=== PATIENT | female | born 1995 | race Caucasian/White ===

== ENCOUNTER 2018-07-22 06:45 | Inpatient (IN) | payer MEDICAID ==
[2018-07-22] MEDS ORDERED: Lactated Ringers 1,000 ML IV SCH (08:00)
[2018-07-22] MEDS ORDERED: Penicillin G Potassium 5 MILLUNITS in Sodium Chloride 0.9% 50 ML IV ONE (08:00)
[2018-07-22] MEDS ORDERED: Ondansetron 4 MG/2 ML SDV IV PRN (08:34)
[2018-07-22] MEDS ORDERED: Acetaminophen 325 MG Tab PO PRN (08:34)
[2018-07-22] MEDS ORDERED: Sodium Chloride 0.9% 10 ML Syringe FLUSH PRN (08:34)
[2018-07-22] MEDS ORDERED: Calcium Carbonate 500 MG Tab.Chew PO PRN (08:34)
--- NOTE | 2018-07-22 09:13 | PCM.LDHP ---
<Lilo Castellanosie - Last Filed: 07/22/18 09:07> L&D History of Present Illness - General Date of Service: 07/22/18 (Labor, SROM ) Admit Problem/Dx: Patient Status Order with Admit Dx/Problem 07/22/18 08:35 Patient Status [ADT] Routine Admission Diagnosis/Problem Admission Diagnosis/Problem Term Source of Information: Patient History Limitations: Reports: No Limitations - History of Present Illness Introduction:: 23 yo comes to L & D this morning with SROM at home of clear fluid around 0630. She was willi every 2-4 minutes at that time but they were only lasting 40 seconds or so. She now is willi every 1.5-2 minutes lasting 60 seconds and progressing nicely. She is up walking and getting into the tub now. She is unsure if she desires pain medication. Timing/Duration: Reports: seconds: (60), minutes: (2), gradual onset Location, : Reports: Abdomen, Lower back Quality: Reports: Sharp Severity: Moderate Improves with: Reports: Movement Worsens with: Reports: None Associated Symptoms: Reports: vaginal fluid (Clear amniotic), mild amount. Denies: vaginal bleeding, vaginal discharge - Related Data Allergies/Adverse Reactions: Allergies Allergy/AdvReac Type Severity Reaction Status Date / Time No Known Allergies Allergy Verified 03/03/18 22:07 Home Medications: Home Meds Docosahexanoic Acid [ Dha] 03/03/18 [History] Omeprazole 03/03/18 [History] Ondansetron [Zofran ODT] 03/03/18 [History] Past Medical History DINKEY BRAKEMAN History: Reports: : 2 Para: 0 LMP (Approximate): - Past Surgical History HEENT Surgical History: Reports: Myringotomy w Tube(s) H&P Review of Systems - Review of Systems: Review Of Systems: See Below General: Reports: No Symptoms HEENT: Reports: No Symptoms Pulmonary: Reports: No Symptoms Cardiovascular: Reports: No Symptoms Gastrointestinal: Reports: No Symptoms Genitourinary: Reports: No Symptoms Musculoskeletal: Reports: No Symptoms Skin: Reports: No Symptoms Psychiatric: Reports: No Symptoms Neurological: Reports: No Symptoms Hematologic/Lymphatic: Reports: No Symptoms Immunologic: Reports: No Symptoms L&D Exam - Exam Exam: See Below - Vital Signs Vital Signs: Last Vital Signs Temp 35.9 C 07/22/18 06:59 Pulse 97 07/22/18 06:59 Resp 18 07/22/18 06:59 BP 120/77 07/22/18 06:59 Pulse Ox 97 07/22/18 06:59 Weight: 278 lb - OB Specific Contraction Duration (sec): 60 Contraction Frequency (min): 2 Contraction Intensity: Moderate Movement: Active Heart Tones: Present Heart Tones per Min: 130 Heart Rate (FHR) Variability: Moderate (6-25 bmp) Presentation: Vertex Estimated Weight: 8.5# - Exam General: Alert, Oriented HEENT: PERRLA, Conjunctiva Clear, EOMI, Hearing Intact, Mucosa Moist & [place], Nares Patent, Normal Nasal Septum Neck: Supple, Trachea Midline Lungs: Clear to Auscultation, Normal Respiratory Effort Cardiovascular: Regular Rate, Regular Rhythm GI/Abdominal Exam: Normal Bowel Sounds, Soft, Non-Tender, No Organomegaly, No Distention, No Abnormal Bruit, No Mass, Pelvis Stable Rectal Exam: Normal Exam, Normal Rectal Tone Genitourinary: Normal external exam, Cervical dilitation, Enlarged uterus Back Exam: Normal Inspection, Full Range of Motion Extremities: Normal Inspection, Normal Range of Motion, Non-Tender, No Pedal Edema, Normal Capillary Refill Skin: Warm, Dry, Intact Neurological: Cranial Nerves Intact, Reflexes Equal Bilateral Psychiatric: Alert, Normal Affect, Normal Mood - Patient Data Lab Results Last 24 hrs: Laboratory Results - last 24 hr 07/22/18 07/22/18 07/22/18 Range/Units 06:51 06:52 06:52 WBC (4.5-11.0) K/uL RBC (3.30-5.50) M/uL Hgb (12.0-15.0) g/dL Hct (36.0-48.0) % MCV (80-98) fL MCH (27-31) pg MCHC (32-36) % Plt Count (150-400) K/uL Neut % (Auto) (36-66) % Lymph % (Auto) (24-44) % [place] % (Auto) (2-6) % Eos % (Auto) (2-4) % Baso % (Auto) (0-1) % Urine Color Yellow Urine Appearance Slightly cloudy Urine pH 7.0 (4.5-8.0) Ur Specific [place] 1.010 (1.008-1.030) Urine Protein Trace (NEGATIVE) mg/dL Urine Glucose (UA) Normal (NEGATIVE) mg/dL Urine Ketones Negative (NEGATIVE) mg/dL Urine Occult Blood Trace (NEGATIVE) Urine Nitrite Negative (NEGATIVE) Urine Bilirubin Negative (NEGATIVE) Urine Urobilinogen Normal (NORMAL) mg/dL Ur Leukocyte Esterase Large (NEGATIVE) Urine RBC 0-5 (0-5) Urine WBC 5-10 H (0-5) Ur Epithelial Cells Few Amorphous Sediment Not seen Urine Bacteria Not seen Urine Mucus Not seen Urinalysis Comment Membrane Rupture Positive H (NEGATIVE) Urine Opiates Screen Negative (NEGATIVE) Ur Oxycodone Screen Negative (NEGATIVE) Urine Methadone Screen Negative (NEGATIVE) Ur Propoxyphene Screen Negative (NEGATIVE) Ur Barbiturates Screen Negative (NEGATIVE) Ur Tricyclics Screen Negative (NEGATIVE) Ur Phencyclidine Scrn Negative (NEGATIVE) Ur Amphetamine Screen Negative (NEGATIVE) U Methamphetamines Scrn Negative (NEGATIVE) Urine MDMA Screen Negative (NEGATIVE) U Benzodiazepines Scrn Negative (NEGATIVE) U Cocaine Metab Screen Negative (NEGATIVE) U Marijuana (THC) Screen Negative (NEGATIVE) 07/22/18 Range/Units 08:34 WBC 19.2 H (4.5-11.0) K/uL RBC 4.18 (3.30-5.50) M/uL Hgb 12.1 (12.0-15.0) g/dL Hct 35.5 L (36.0-48.0) % MCV 85 (80-98) fL MCH 29 (27-31) pg MCHC 34 (32-36) % Plt Count 309 (150-400) K/uL Neut % (Auto) 85 H (36-66) % Lymph % (Auto) 10 L (24-44) % [place] % (Auto) 5 (2-6) % Eos % (Auto) 0 L (2-4) % Baso % (Auto) 0 (0-1) % Urine Color Urine Appearance Urine pH (4.5-8.0) Ur Specific [place] (1.008-1.030) Urine Protein (NEGATIVE) mg/dL Urine Glucose (UA) (NEGATIVE) mg/dL Urine Ketones (NEGATIVE) mg/dL Urine Occult Blood (NEGATIVE) Urine Nitrite (NEGATIVE) Urine Bilirubin (NEGATIVE) Urine Urobilinogen (NORMAL) mg/dL Ur Leukocyte Esterase (NEGATIVE) Urine RBC (0-5) Urine WBC (0-5) Ur Epithelial Cells Amorphous Sediment Urine Bacteria Urine Mucus Urinalysis Comment Membrane Rupture (NEGATIVE) Urine Opiates Screen (NEGATIVE) Ur Oxycodone Screen (NEGATIVE) Urine Methadone Screen (NEGATIVE) Ur Propoxyphene Screen (NEGATIVE) Ur Barbiturates Screen (NEGATIVE) Ur Tricyclics Screen (NEGATIVE) Ur Phencyclidine Scrn (NEGATIVE) Ur Amphetamine Screen (NEGATIVE) U Methamphetamines Scrn (NEGATIVE) Urine MDMA Screen (NEGATIVE) U Benzodiazepines Scrn (NEGATIVE) U Cocaine Metab Screen (NEGATIVE) U Marijuana (THC) Screen (NEGATIVE) Result Diagrams: 07/22/18 08:34 - Problem List (1) Active labor at term SNOMED Code(s): 33884246 ICD Code: [id number] - Status: Acute Current Visit: Yes (2) GBS (group B Streptococcus carrier), +RV culture, currently SNOMED Code(s): 6016207556741, [id number], 9387444744236 ICD Code: O99.820 - STREPTOCOCCUS 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 COMPLICATING Status: Acute Current Visit: Yes (3) Spontaneous rupture of membranes SNOMED Code(s): 242643329 ICD Code: [id number] - Status: Acute Current Visit: Yes Problem List Initiated/Reviewed/Updated: Yes Orders Last 24hrs: Active Orders 24 hr Category Date Time Status Patient Status [ADT] Routine ADT 07/22/18 08:35 Active Communication Order [RC] ASDIRECTED Care 07/22/18 08:35 Active Heart Tones [RC] PER UNIT ROUTINE Care 07/22/18 08:35 Active Non Stress Test [RC] Click to Edit Care 07/22/18 08:35 Active Notify Provider Vital Signs [RC] PRN Care 07/22/18 08:38 Active Notify Provider [RC] PRN Care 07/22/18 08:35 Active Up ad Linda [RC] ASDIRECTED Care 07/22/18 08:34 Active Vital Signs [RC] PER UNIT ROUTINE Care 07/22/18 08:35 Active Acetaminophen [Tylenol] Med 07/22/18 08:34 Active 650 mg PO Q4H PRN Calcium Carbonate [Tums] Med 07/22/18 08:34 Active 1,000 mg PO Q2H PRN Lactated Ringers [Ringers, Lactated] 1,000 ml Med 07/22/18 08:00 Active IV ASDIRECTED Ondansetron [Zofran] Med 07/22/18 08:34 Active 4 mg IV Q4H PRN Penicillin G Potassium [Pfizerpen] 2.5 millunits Med 07/22/18 12:00 Active Sodium Chloride 0.9% [Normal Saline] 50 ml IV Q4H Sodium Chloride 0.9% [Saline Flush] Med 07/22/18 08:34 Active 10 ml FLUSH ASDIRECTED PRN fentaNYL [Sublimaze] Med 07/22/18 08:34 Active 100 mcg IVPUSH Q1H PRN Saline Lock Insert [OM.PC] Routine Oth 07/22/18 08:35 Ordered Resuscitation Status Routine Resus Stat 07/22/18 08:34 Ordered Medication Orders Acetaminophen (Tylenol) 650 mg PO Q4H PRN PRN Reason: Pain (Mild 1-3) and fever Calcium Carbonate/Glycine (Tums) 1,000 mg PO Q2H PRN PRN Reason: Indigestion Fentanyl (Sublimaze) 100 mcg IVPUSH Q1H PRN PRN Reason: Pain (moderate 4-6) Penicillin G Potassium 2.5 (millunits/ Sodium Chloride) 50 mls @ 100 mls/hr IV Q4H [facility] Lactated Ringer's (Ringers, Lactated) 1,000 mls @ 125 mls/hr IV ASDIRECTED [facility] Last Admin: 07/22/18 08:16 Dose: 125 mls/hr Ondansetron HCl (Zofran) 4 mg IV Q4H PRN PRN Reason: Nausea/Vomiting Sodium Chloride (Saline Flush) 10 ml FLUSH ASDIRECTED PRN PRN Reason: Keep Vein Open Assessment/Plan Comment:: 07/22/18 Assessment: 23 yo at 39 1/7 weeks with SROM of clear fluid at home, active labor SVE 4.5/100/-1 GBS positive B+ blood type Rubella immune Hep B & C/HIV/RPR all neg Plan: Anticipate Getting into the tub now Antibiotics for GBS Epidural or pain medication as she desires <Gay Valdez A - Last Filed: 07/22/18 12:48> L&D History of Present Illness - General Admit Problem/Dx: Patient Status Order with Admit Dx/Problem 07/22/18 08:35 Patient Status [ADT] Routine Admission Diagnosis/Problem Admission Diagnosis/Problem Term L&D Exam - Vital Signs Vital Signs: Last Vital Signs Temp 96.6 F 07/22/18 06:59 Pulse 97 07/22/18 06:59 Resp 18 07/22/18 06:59 BP 120/77 07/22/18 06:59 Pulse Ox 97 07/22/18 06:59 - Patient Data Lab Results Last 24 hrs: Laboratory Results - last 24 hr 07/22/18 07/22/18 07/22/18 Range/Units 06:51 06:52 06:52 WBC (4.5-11.0) K/uL RBC (3.30-5.50) M/uL Hgb (12.0-15.0) g/dL Hct (36.0-48.0) % MCV (80-98) fL MCH (27-31) pg MCHC (32-36) % Plt Count (150-400) K/uL Neut % (Auto) (36-66) % Lymph % (Auto) (24-44) % [place] % (Auto) (2-6) % Eos % (Auto) (2-4) % Baso % (Auto) (0-1) % Urine Color Yellow Urine Appearance Slightly cloudy Urine pH 7.0 (4.5-8.0) Ur Specific [place] 1.010 (1.008-1.030) Urine Protein Trace (NEGATIVE) mg/dL Urine Glucose (UA) Normal (NEGATIVE) mg/dL Urine Ketones Negative (NEGATIVE) mg/dL Urine Occult Blood Trace (NEGATIVE) Urine Nitrite Negative (NEGATIVE) Urine Bilirubin Negative (NEGATIVE) Urine Urobilinogen Normal (NORMAL) mg/dL Ur Leukocyte Esterase Large (NEGATIVE) Urine RBC 75-100 H (0-5) Urine WBC 10-20 H (0-5) Ur Epithelial Cells Moderate Amorphous Sediment Not seen Urine Bacteria Not seen Urine Mucus Moderate Urinalysis Comment Membrane Rupture Positive H (NEGATIVE) Urine Opiates Screen Negative (NEGATIVE) Ur Oxycodone Screen Negative (NEGATIVE) Urine Methadone Screen Negative (NEGATIVE) Ur Propoxyphene Screen Negative (NEGATIVE) Ur Barbiturates Screen Negative (NEGATIVE) Ur Tricyclics Screen Negative (NEGATIVE) Ur Phencyclidine Scrn Negative (NEGATIVE) Ur Amphetamine Screen Negative (NEGATIVE) U Methamphetamines Scrn Negative (NEGATIVE) Urine MDMA Screen Negative (NEGATIVE) U Benzodiazepines Scrn Negative (NEGATIVE) U Cocaine Metab Screen Negative (NEGATIVE) U Marijuana (THC) Screen Negative (NEGATIVE) 07/22/18 Range/Units 08:34 WBC 19.2 H (4.5-11.0) K/uL RBC 4.18 (3.30-5.50) M/uL Hgb 12.1 (12.0-15.0) g/dL Hct 35.5 L (36.0-48.0) % MCV 85 (80-98) fL MCH 29 (27-31) pg MCHC 34 (32-36) % Plt Count 309 (150-400) K/uL Neut % (Auto) 85 H (36-66) % Lymph % (Auto) 10 L (24-44) % [place] % (Auto) 5 (2-6) % Eos % (Auto) 0 L (2-4) % Baso % (Auto) 0 (0-1) % Urine Color Urine Appearance Urine pH (4.5-8.0) Ur Specific [place] (1.008-1.030) Urine Protein (NEGATIVE) mg/dL Urine Glucose (UA) (NEGATIVE) mg/dL Urine Ketones (NEGATIVE) mg/dL Urine Occult Blood (NEGATIVE) Urine Nitrite (NEGATIVE) Urine Bilirubin (NEGATIVE) Urine Urobilinogen (NORMAL) mg/dL Ur Leukocyte Esterase (NEGATIVE) Urine RBC (0-5) Urine WBC (0-5) Ur Epithelial Cells Amorphous Sediment Urine Bacteria Urine Mucus Urinalysis Comment Membrane Rupture (NEGATIVE) Urine Opiates Screen (NEGATIVE) Ur Oxycodone Screen (NEGATIVE) Urine Methadone Screen (NEGATIVE) Ur Propoxyphene Screen (NEGATIVE) Ur Barbiturates Screen (NEGATIVE) Ur Tricyclics Screen (NEGATIVE) Ur Phencyclidine Scrn (NEGATIVE) Ur Amphetamine Screen (NEGATIVE) U Methamphetamines Scrn (NEGATIVE) Urine MDMA Screen (NEGATIVE) U Benzodiazepines Scrn (NEGATIVE) U Cocaine Metab Screen (NEGATIVE) U Marijuana (THC) Screen (NEGATIVE) Result Diagrams: 07/22/18 08:34 Orders Last 24hrs: Active Orders 24 hr Category Date Time Status Patient Status [ADT] Routine ADT 07/22/18 08:35 Active Communication Order [RC] ASDIRECTED Care 07/22/18 08:35 Active Notify Provider Vital Signs [RC] PRN Care 07/22/18 08:38 Active Notify Provider [RC] PRN Care 07/22/18 08:35 Active Up ad Linda [RC] ASDIRECTED Care 07/22/18 08:34 Active Vital Signs [RC] PER UNIT ROUTINE Care 07/22/18 08:35 Active Acetaminophen [Tylenol] Med 07/22/18 08:34 Active 650 mg PO Q4H PRN Calcium Carbonate [Tums] Med 07/22/18 08:34 Active 1,000 mg PO Q2H PRN Lactated Ringers [Ringers, Lactated] 1,000 ml Med 07/22/18 08:00 Active IV ASDIRECTED Ondansetron [Zofran] Med 07/22/18 08:34 Active 4 mg IV Q4H PRN Penicillin G Potassium [Pfizerpen] 2.5 millunits Med 07/22/18 12:00 Active Sodium Chloride 0.9% [Normal Saline] 50 ml IV Q4H Sodium Chloride 0.9% [Saline Flush] Med 07/22/18 08:34 Active 10 ml FLUSH ASDIRECTED PRN fentaNYL [Sublimaze] Med 07/22/18 08:34 Active 100 mcg IVPUSH Q1H PRN Saline Lock Insert [OM.PC] Routine Oth 07/22/18 08:35 Ordered Resuscitation Status Routine Resus Stat 07/22/18 08:34 Ordered Medication Orders Acetaminophen (Tylenol) 650 mg PO Q4H PRN PRN Reason: Pain (Mild 1-3) and fever Calcium Carbonate/Glycine (Tums) 1,000 mg PO Q2H PRN PRN Reason: Indigestion Fentanyl (Sublimaze) 100 mcg IVPUSH Q1H PRN PRN Reason: Pain (moderate 4-6) Last Admin: 07/22/18 12:19 Dose: 100 mcg Admin: 07/22/18 10:54 Dose: 100 mcg Admin: 07/22/18 09:50 Dose: 100 mcg Penicillin G Potassium 2.5 (millunits/ Sodium Chloride) 50 mls @ 100 mls/hr IV Q4H [facility] Lactated Ringer's (Ringers, Lactated) 1,000 mls @ 125 mls/hr IV ASDIRECTED [facility] Last Admin: 07/22/18 08:16 Dose: 125 mls/hr Ondansetron HCl (Zofran) 4 mg IV Q4H PRN PRN Reason: Nausea/Vomiting Sodium Chloride (Saline Flush) 10 ml FLUSH ASDIRECTED PRN PRN Reason: Keep Vein Open Assessment/Plan Comment:: I personally performed or re-performed the physical examination and medical decision making. I have verified all student documentation or findings, including history, physical exam and/or medical decision making.Gay Valdez APRN, CNM, CFNP
[2018-07-22] MEDS ORDERED: Oxytocin 10 Units/1 ML SDV ONE (09:48)
[2018-07-22] MEDS ORDERED: Lidocaine 1% 50 ML MDV ONE (09:48)
[2018-07-22] MEDS: fentaNYL 100 MCG/2 ML SDV IVPUSH PRN ×3 (09:50→12:19)
[2018-07-22] MEDS ORDERED: Methylergonovine 0.2 MG/1 ML Amp ONE (12:16)
[2018-07-22] MEDS ORDERED: Methylergonovine 0.2 MG/1 ML Amp IM ONE (12:27)
[2018-07-22] MEDS ORDERED: Lidocaine 1% 50 ML MDV INJECT ONE (12:33)
[2018-07-22] MEDS ORDERED: Witch Hazel Medicated Pads 100/Jar TOP PRN (12:46)
[2018-07-22] MEDS ORDERED: Benzocaine 20% Top Spray 56 GM Bottle TOP PRN (12:46)
[2018-07-22] MEDS ORDERED: Lanolin 100% Cream 40 GM Tube TOP PRN (12:46)
[2018-07-22] MEDS ORDERED: Ibuprofen 200 MG Tab, 24 Tab Bulk Bottle PO PRN (12:46)
[2018-07-22] MEDS ORDERED: Docusate Sodium 100 MG Cap PO PRN (12:46)
[2018-07-22] MEDS ORDERED: Acetaminophen 325 MG Tab, 50 Tab Bulk Bottle PO PRN (12:46)
--- NOTE | 2018-07-22 13:00 | PCM.DEL ---
<Anjelica Castellanos - Last Filed: 07/22/18 12:50> L & D Note - General Info Date of Service: 07/22/18 ([facility]) - Delivery Note Labor: Spontaneous Delivery Outcome: Livebirth Infant Delivery Method: Spontaneous Vaginal Delivery-Single Infant Delivery Mode: Spontaneous Presentation: Vertex Nuchal Cord: None Anesthesia Type: None Anesthetic: Lidocaine (Xylocaine) 1% Plain Local Anesthetic Volume: 5cc Amniotic Fluid Description: Clear Episiotomy Type: None Laceration: Labial (right), Periurethral (right) Suture size: 3-0 Placenta: Intact, Spontaneous Cord: 3 Vessels Estimated Blood Loss: 400 Resuscitation Needed: No [place]: Bulb Syringe, Stimulated, Warmer Used Score 1 min: 8 Score 5 min: 9 Second Stage Interventions: Reports: Second Nurse Assessed Progress of Descent, Second Nurse Reviewed Contraction Pattern, Second Nurse Reviewed Heart Tones, Pushing Effectively, Pushing, Feet in Foot Rests, Pushing, Pulls Own Legs Back Delivery Comments (Free Text/Narrative):: 07/22/18 23 yo delivered a viable female infant at 39 1/7 weeks. She had SROM at home and then had spontaneous onset of labor. She recieved fentanyl for pain relief and used the tub. She pushed effectively and delivered at 1208. Delayed cord clamping done for roughly 30 seconds but then the cord was clamped and cut and baby was brought to warmer for poor respiratory effort. She was stimulated and given blow by oxygen and stimulated, responded very well and ended up with Apgars 8, 9. She has no cervical or vaginal lacerations, she does have a right labial and periurethral tear. A straight catheter was inserted to urethra for ease of repair.The area was numbed with 1% lidocaine without epi and repaired with 3-0 Vicryl without compilations. Placenta was delivered spontaneously, intact, with a 3 vessel cord. She did have a boggy uterus regardless of IV Pitocin so she was given Methergine IM as well. FF and bleeding light now. EBL 400 ml Weight 8 lb 3 oz and 20 in long. Baby skin to skin and now. Labor Stages: 1: 3812-6231 2: 5250-6279 3: 6401-0524 - General Info Date of Service: 07/22/18 () Functional Status: Reports: Pain Controlled - Review of Systems General: Reports: No Symptoms HEENT: Reports: No Symptoms Pulmonary: Reports: No Symptoms Cardiovascular: Reports: No Symptoms Gastrointestinal: Reports: No Symptoms Genitourinary: Reports: No Symptoms Musculoskeletal: Reports: No Symptoms Skin: Reports: No Symptoms Neurological: Reports: No Symptoms Psychiatric: Reports: No Symptoms - Patient Data Vitals - Most Recent: Last Vital Signs Temp 35.9 C 07/22/18 06:59 Pulse 97 07/22/18 06:59 Resp 18 07/22/18 06:59 BP 120/77 07/22/18 06:59 Pulse Ox 97 07/22/18 06:59 Weight - Most Recent: 278 lb I&O - Last 24 Hours: Intake & Output 07/21/18 07/22/18 07/22/18 22:59 06:59 14:59 Intake Total 50 Balance 50 Lab Results Last 24 Hours: Laboratory Results - last 24 hr 07/22/18 07/22/18 07/22/18 Range/Units 06:51 06:52 06:52 WBC (4.5-11.0) K/uL RBC (3.30-5.50) M/uL Hgb (12.0-15.0) g/dL Hct (36.0-48.0) % MCV (80-98) fL MCH (27-31) pg MCHC (32-36) % Plt Count (150-400) K/uL Neut % (Auto) (36-66) % Lymph % (Auto) (24-44) % [place] % (Auto) (2-6) % Eos % (Auto) (2-4) % Baso % (Auto) (0-1) % Urine Color Yellow Urine Appearance Slightly cloudy Urine pH 7.0 (4.5-8.0) Ur Specific [place] 1.010 (1.008-1.030) Urine Protein Trace (NEGATIVE) mg/dL Urine Glucose (UA) Normal (NEGATIVE) mg/dL Urine Ketones Negative (NEGATIVE) mg/dL Urine Occult Blood Trace (NEGATIVE) Urine Nitrite Negative (NEGATIVE) Urine Bilirubin Negative (NEGATIVE) Urine Urobilinogen Normal (NORMAL) mg/dL Ur Leukocyte Esterase Large (NEGATIVE) Urine RBC 75-100 H (0-5) Urine WBC 10-20 H (0-5) Ur Epithelial Cells Moderate Amorphous Sediment Not seen Urine Bacteria Not seen Urine Mucus Moderate Urinalysis Comment Membrane Rupture Positive H (NEGATIVE) Urine Opiates Screen Negative (NEGATIVE) Ur Oxycodone Screen Negative (NEGATIVE) Urine Methadone Screen Negative (NEGATIVE) Ur Propoxyphene Screen Negative (NEGATIVE) Ur Barbiturates Screen Negative (NEGATIVE) Ur Tricyclics Screen Negative (NEGATIVE) Ur Phencyclidine Scrn Negative (NEGATIVE) Ur Amphetamine Screen Negative (NEGATIVE) U Methamphetamines Scrn Negative (NEGATIVE) Urine MDMA Screen Negative (NEGATIVE) U Benzodiazepines Scrn Negative (NEGATIVE) U Cocaine Metab Screen Negative (NEGATIVE) U Marijuana (THC) Screen Negative (NEGATIVE) 07/22/18 Range/Units 08:34 WBC 19.2 H (4.5-11.0) K/uL RBC 4.18 (3.30-5.50) M/uL Hgb 12.1 (12.0-15.0) g/dL Hct 35.5 L (36.0-48.0) % MCV 85 (80-98) fL MCH 29 (27-31) pg MCHC 34 (32-36) % Plt Count 309 (150-400) K/uL Neut % (Auto) 85 H (36-66) % Lymph % (Auto) 10 L (24-44) % [place] % (Auto) 5 (2-6) % Eos % (Auto) 0 L (2-4) % Baso % (Auto) 0 (0-1) % Urine Color Urine Appearance Urine pH (4.5-8.0) Ur Specific [place] (1.008-1.030) Urine Protein (NEGATIVE) mg/dL Urine Glucose (UA) (NEGATIVE) mg/dL Urine Ketones (NEGATIVE) mg/dL Urine Occult Blood (NEGATIVE) Urine Nitrite (NEGATIVE) Urine Bilirubin (NEGATIVE) Urine Urobilinogen (NORMAL) mg/dL Ur Leukocyte Esterase (NEGATIVE) Urine RBC (0-5) Urine WBC (0-5) Ur Epithelial Cells Amorphous Sediment Urine Bacteria Urine Mucus Urinalysis Comment Membrane Rupture (NEGATIVE) Urine Opiates Screen (NEGATIVE) Ur Oxycodone Screen (NEGATIVE) Urine Methadone Screen (NEGATIVE) Ur Propoxyphene Screen (NEGATIVE) Ur Barbiturates Screen (NEGATIVE) Ur Tricyclics Screen (NEGATIVE) Ur Phencyclidine Scrn (NEGATIVE) Ur Amphetamine Screen (NEGATIVE) U Methamphetamines Scrn (NEGATIVE) Urine MDMA Screen (NEGATIVE) U Benzodiazepines Scrn (NEGATIVE) U Cocaine Metab Screen (NEGATIVE) U Marijuana (THC) Screen (NEGATIVE) Med Orders - Current: Current Medications Acetaminophen (Tylenol) 650 mg PO Q4H PRN PRN Reason: Pain (Mild 1-3) and fever Calcium Carbonate/Glycine (Tums) 1,000 mg PO Q2H PRN PRN Reason: Indigestion Fentanyl (Sublimaze) 100 mcg IVPUSH Q1H PRN PRN Reason: Pain (moderate 4-6) Last Admin: 07/22/18 12:19 Dose: 100 mcg Penicillin G Potassium 2.5 (millunits/ Sodium Chloride) 50 mls @ 100 mls/hr IV Q4H JUDITH Lactated Ringer's (Ringers, Lactated) 1,000 mls @ 125 mls/hr IV ASDIRECTED JUDITH Last Admin: 07/22/18 08:16 Dose: 125 mls/hr Ondansetron HCl (Zofran) 4 mg IV Q4H PRN PRN Reason: Nausea/Vomiting Sodium Chloride (Saline Flush) 10 ml FLUSH ASDIRECTED PRN PRN Reason: Keep Vein Open Discontinued Medications Penicillin G Potassium 5 (millunits/ Sodium Chloride) 50 mls @ 100 mls/hr IV ONETIME ONE Stop: 07/22/18 08:29 Last Admin: 07/22/18 08:16 Dose: 100 mls/hr Oxytocin/Sodium Chloride (Pitocin In Ns 20 Units/1,000 Ml) Confirm Administered Dose 20 unit in 1,000 mls @ as directed .ROUTE .STK-MED ONE Stop: 07/22/18 09:49 Lidocaine HCl (Xylocaine 1%) 0 ml INJECT ONETIME ONE Stop: 07/22/18 12:34 Methylergonovine Maleate (Methergine) 0.2 mg IM STAT ONE Stop: 07/22/18 12:28 Last Admin: 07/22/18 12:33 Dose: 0.2 mg Oxytocin (Pitocin) Confirm Administered Dose 10 unit .ROUTE .STK-MED ONE Stop: 07/22/18 09:49 - Exam General: Alert, Oriented HEENT: Pupils Equal, Pupils Reactive, EOMI, Mucous Membr. Moist/[place] Neck: Supple Lungs: Clear to Auscultation, Normal Respiratory Effort Cardiovascular: Regular Rate, Regular Rhythm GI/Abdominal Exam: Normal Bowel Sounds, Soft, No Mass, Pelvis Stable (Female) Exam: Normal External Exam, Cervical Dilatation, Enlarged Uterus, Fundal Height, Vaginal Bleeding. No: Cervical Lesions, Vaginal Lesions, Vaginal Tears Back Exam: Normal Inspection, Full Range of Motion Extremities: Normal Inspection, Normal Range of Motion, Non-Tender, No Pedal Edema, Normal Capillary Refill Skin: Warm, Dry, Intact Neurological: No New Focal Deficit Psy/Mental Status: Alert, Normal Affect, Normal Mood - Problem List & Annotations (1) Active labor at term SNOMED Code(s): 34255284 Code(s): VFY1812 - Status: Acute Current Visit: Yes (2) GBS (group B Streptococcus carrier), +RV culture, currently SNOMED Code(s): 7459082925374, 838459663, 3075739739636 Code(s): O99.820 - STREPTOCOCCUS 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 COMPLICATING Status: Acute Current Visit: Yes (3) Spontaneous rupture of membranes SNOMED Code(s): 786280890 Code(s): LXI8782 - Status: Acute Current Visit: Yes (4) Vaginal delivery SNOMED Code(s): 931211238 Code(s): O80 - ENCOUNTER FOR FULL-TERM UNCOMPLICATED DELIVERY Status: Acute Current Visit: Yes (5) Periurethral laceration, delivered, current hospitalization SNOMED Code(s): 340593858, 722906279 Code(s): O71.82 - OTHER SPECIFIED TRAUMA TO PERINEUM AND VULVA Status: Acute Current Visit: Yes (6) Obstetric labial laceration, delivered, current hospitalization SNOMED Code(s): 700973858, 684810874, 851061315 Code(s): O70.0 - FIRST DEGREE PERINEAL LACERATION DURING DELIVERY Status: Acute Current Visit: Yes (7) Mother currently breast-feeding SNOMED Code(s): 817401572 Code(s): LBC6499 - Status: Acute Current Visit: Yes - Problem List Review Problem List Initiated/Reviewed/Updated: Yes - My Orders Last 24 Hours: My Active Orders 07/22/18 08:34 Up ad Linda [RC] ASDIRECTED Acetaminophen [Tylenol] 650 mg PO Q4H PRN Calcium Carbonate [Tums] 1,000 mg PO Q2H PRN Ondansetron [Zofran] 4 mg IV Q4H PRN Sodium Chloride 0.9% [Saline Flush] 10 ml FLUSH ASDIRECTED PRN fentaNYL [Sublimaze] 100 mcg IVPUSH Q1H PRN Resuscitation Status Routine 07/22/18 08:35 Patient Status [ADT] Routine Communication Order [RC] ASDIRECTED Notify Provider [RC] PRN Vital Signs [RC] PER UNIT ROUTINE Saline Lock Insert [OM.PC] Routine 07/22/18 08:38 Notify Provider Vital Signs [RC] PRN 07/22/18 12:46 Patient Status [ADT] Routine Vital Signs [RC] PFP Consult to Through Operator [CONS] Routine Acetaminophen [Tylenol Bulk Bottle] 325 mg PO Q4H PRN Benzocaine [[id number]-[id number]-[id number] 20% [place]] See Dose Instructions TOP Q4H PRN Docusate Sodium [Colace] 100 mg PO BID PRN Ibuprofen [Motrin Bulk Bottle] 600 mg PO Q6H PRN Lanolin [Lansinoh HPA] 1 gm TOP ASDIRECTED PRN Witch Casie [Tucks] 1 pad TOP ASDIRECTED PRN Assess Lochia [WOMSER] Per Unit Routine Assess Uterine Involution [WOMSER] Per Unit Routine 07/22/18 12:47 Ice Therapy [OM.PC] Per Unit Routine Perineal Care [OM.PC] Per Unit Routine Sitz Bath [OM.PC] Per Unit Routine 07/22/18 12:48 Peripheral IV Discontinue [OM.PC] Routine 07/22/18 Lunch Regular Diet [DIET] 07/23/18 05:11 CBC WITH AUTO DIFF [HEME] AM - Assessment Assessment:: 07/22/18 Right sided periurethral and labial tear repaired with 3-0 Vicryl Boggy uterus initially with 400 ml blood loss FF now with light bleeding GBS positive, received one dose of antibiotics Plan: Routine cares support Anticipate 48 hour stay for GBS - Plan Plan:: I personally performed or re-performed the physical examination and medical decision making. I have verified all student documentation or findings, including history, physical exam and/or medical decision making.Gay Valdez BLACK TOP ROLLER, CNM, CFNP <Gay Valdez A - Last Filed: 07/23/18 08:14> - Patient Data Vitals - Most Recent: Last Vital Signs Temp 96.5 F 07/23/18 07:26 Pulse 86 07/23/18 07:26 Resp 16 07/23/18 07:26 BP 107/51 L 07/23/18 07:26 Pulse Ox 100 07/23/18 07:26 Lab Results Last 24 Hours: Laboratory Results - last 24 hr 07/22/18 07/22/18 07/23/18 Range/Units 06:52 08:34 05:00 WBC 19.2 H 14.2 H (4.5-11.0) K/uL RBC 4.18 3.27 L (3.30-5.50) M/uL Hgb 12.1 9.2 L D (12.0-15.0) g/dL Hct 35.5 L 28.6 L (36.0-48.0) % MCV 85 88 (80-98) fL MCH 29 28 (27-31) pg MCHC 34 32 (32-36) % Plt Count 309 247 (150-400) K/uL Neut % (Auto) 85 H 71 H (36-66) % Lymph % (Auto) 10 L 20 L (24-44) % [place] % (Auto) 5 8 H (2-6) % Eos % (Auto) 0 L 1 L (2-4) % Baso % (Auto) 0 0 (0-1) % Urine RBC 75-100 H (0-5) Urine WBC 10-20 H (0-5) Ur Epithelial Cells Moderate Urine Mucus Moderate Urinalysis Comment Med Orders - Current: Current Medications Acetaminophen (Tylenol) 650 mg PO Q4H PRN PRN Reason: Pain (Mild 1-3) and fever Acetaminophen (Tylenol Bulk Bottle) 325 - 650 mg PO Q4H PRN PRN Reason: Pain Last Admin: 07/22/18 14:57 Dose: 650 mg Benzocaine ([id number] 20% [place]) 0 gm TOP Q4H PRN PRN Reason: Perineal Comfort Measure Last Admin: 07/22/18 14:53 Dose: 1 spray Calcium Carbonate/Glycine (Tums) 1,000 mg PO Q2H PRN PRN Reason: Indigestion Docusate Sodium (Colace) 100 mg PO BID PRN PRN Reason: Constipation Emollient Ointment (Lansinoh Hpa) 0 gm TOP ASDIRECTED PRN PRN Reason: Sore Nipples Last Admin: 07/22/18 14:54 Dose: 1 applic Fentanyl (Sublimaze) 100 mcg IVPUSH Q1H PRN PRN Reason: Pain (moderate 4-6) Last Admin: 07/22/18 12:19 Dose: 100 mcg Ferrous Sulfate (Ferrous Sulfate) 325 mg PO WITHBREAKFAST [facility] Lactated Ringer's (Ringers, Lactated) 1,000 mls @ 125 mls/hr IV ASDIRECTED [facility] Last Admin: 07/22/18 08:16 Dose: 125 mls/hr Ibuprofen (Motrin Bulk Bottle) 600 mg PO Q6H PRN PRN Reason: Pain Last Admin: 07/22/18 14:55 Dose: 600 mg Ondansetron HCl (Zofran) 4 mg IV Q4H PRN PRN Reason: Nausea/Vomiting Sodium Chloride (Saline Flush) 10 ml FLUSH ASDIRECTED PRN PRN Reason: Keep Vein Open Suzie Jason (Tucks) 1 pad TOP ASDIRECTED PRN PRN Reason: Hemorrhoids Last Admin: 07/22/18 14:53 Dose: 1 pad Discontinued Medications Penicillin G Potassium 2.5 (millunits/ Sodium Chloride) 50 mls @ 100 mls/hr IV Q4H [facility] Last Admin: 07/22/18 21:55 Dose: Not Given Penicillin G Potassium 5 (millunits/ Sodium Chloride) 50 mls @ 100 mls/hr IV ONETIME ONE Stop: 07/22/18 08:29 Last Admin: 07/22/18 08:16 Dose: 100 mls/hr Oxytocin/Sodium Chloride (Pitocin In Ns 20 Units/1,000 Ml) Confirm Administered Dose 20 unit in 1,000 mls @ as directed .ROUTE .STK-MED ONE Stop: 07/22/18 09:49 Last Admin: 07/22/18 12:08 Dose: 200 mls/hr Lidocaine HCl (Xylocaine 1%) 0 ml INJECT ONETIME ONE Stop: 07/22/18 12:34 Last Admin: 07/22/18 12:25 Dose: 50 ml Methylergonovine Maleate (Methergine) 0.2 mg IM STAT ONE Stop: 07/22/18 12:28 Last Admin: 07/22/18 12:33 Dose: 0.2 mg Oxytocin (Pitocin) Confirm Administered Dose 10 unit .ROUTE .STK-MED ONE Stop: 07/22/18 09:49 Last Admin: 07/22/18 13:46 Dose: Not Given - My Orders Last 24 Hours: My Active Orders 07/22/18 08:00 Lactated Ringers [Ringers, Lactated] 1,000 ml IV ASDIRECTED
[2018-07-22] MEDS: Penicillin G Potassium 2.5 MILLUNITS in Sodium Chloride 0.9% 50 ML IV SCH ×3 (13:47→21:55)
--- NOTE | 2018-07-23 08:12 | PCM.PNPP ---
<Anjelica Castellanos - Last Filed: 07/23/18 08:06> - General Info Date of Service: 07/23/18 (PP day 1) Functional Status: Reports: Pain Controlled - Review of Systems General: Reports: No Symptoms HEENT: Reports: No Symptoms Pulmonary: Reports: No Symptoms Cardiovascular: Reports: No Symptoms Gastrointestinal: Reports: No Symptoms Genitourinary: Reports: No Symptoms Musculoskeletal: Reports: No Symptoms Skin: Reports: No Symptoms Neurological: Reports: No Symptoms Psychiatric: Reports: No Symptoms - General Info Date of Service: 07/23/18 - Patient Data Vital Signs - Most Recent: Last Vital Signs Temp 35.8 C 07/23/18 07:26 Pulse 86 07/23/18 07:26 Resp 16 07/23/18 07:26 BP 107/51 L 07/23/18 07:26 Pulse Ox 100 07/23/18 07:26 Weight - Most Recent: 278 lb Lab Results - Last 24 Hours: Laboratory Results - last 24 hr 07/22/18 07/22/18 07/23/18 Range/Units 06:52 08:34 05:00 WBC 19.2 H 14.2 H (4.5-11.0) K/uL RBC 4.18 3.27 L (3.30-5.50) M/uL Hgb 12.1 9.2 L D (12.0-15.0) g/dL Hct 35.5 L 28.6 L (36.0-48.0) % MCV 85 88 (80-98) fL MCH 29 28 (27-31) pg MCHC 34 32 (32-36) % Plt Count 309 247 (150-400) K/uL Neut % (Auto) 85 H 71 H (36-66) % Lymph % (Auto) 10 L 20 L (24-44) % Charlton % (Auto) 5 8 H (2-6) % Eos % (Auto) 0 L 1 L (2-4) % Baso % (Auto) 0 0 (0-1) % Urine RBC 75-100 H (0-5) Urine WBC 10-20 H (0-5) Ur Epithelial Cells Moderate Urine Mucus Moderate Urinalysis Comment Med Orders - Current: Current Medications Acetaminophen (Tylenol) 650 mg PO Q4H PRN PRN Reason: Pain (Mild 1-3) and fever Acetaminophen (Tylenol Bulk Bottle) 325 - 650 mg PO Q4H PRN PRN Reason: Pain Last Admin: 07/22/18 14:57 Dose: 650 mg Benzocaine (Kynb-H-Paxwazs 20% Lawrence) 0 gm TOP Q4H PRN PRN Reason: Perineal Comfort Measure Last Admin: 07/22/18 14:53 Dose: 1 spray Calcium Carbonate/Glycine (Tums) 1,000 mg PO Q2H PRN PRN Reason: Indigestion Docusate Sodium (Colace) 100 mg PO BID PRN PRN Reason: Constipation Emollient Ointment (Lansinoh Hpa) 0 gm TOP ASDIRECTED PRN PRN Reason: Sore Nipples Last Admin: 07/22/18 14:54 Dose: 1 applic Fentanyl (Sublimaze) 100 mcg IVPUSH Q1H PRN PRN Reason: Pain (moderate 4-6) Last Admin: 07/22/18 12:19 Dose: 100 mcg Ferrous Sulfate (Ferrous Sulfate) [facility] Lactated Ringer's (Ringers, Lactated) 1,000 mls @ 125 mls/hr IV ASDIRECTED [facility] Last Admin: 07/22/18 08:16 Dose: 125 mls/hr Ibuprofen (Motrin Bulk Bottle) 600 mg PO Q6H PRN PRN Reason: Pain Last Admin: 07/22/18 14:55 Dose: 600 mg Ondansetron HCl (Zofran) 4 mg IV Q4H PRN PRN Reason: Nausea/Vomiting Sodium Chloride (Saline Flush) 10 ml FLUSH ASDIRECTED PRN PRN Reason: Keep Vein Open Suzie Jason ([place]ks) 1 pad TOP ASDIRECTED PRN PRN Reason: Hemorrhoids Last Admin: 07/22/18 14:53 Dose: 1 pad Discontinued Medications Penicillin G Potassium 2.5 (millunits/ Sodium Chloride) 50 mls @ 100 mls/hr IV Q4H [facility] Last Admin: 07/22/18 21:55 Dose: Not Given Penicillin G Potassium 5 (millunits/ Sodium Chloride) 50 mls @ 100 mls/hr IV ONETIME ONE Stop: 07/22/18 08:29 Last Admin: 07/22/18 08:16 Dose: 100 mls/hr Oxytocin/Sodium Chloride (Pitocin In Ns 20 Units/1,000 Ml) Confirm Administered Dose 20 unit in 1,000 mls @ as directed .ROUTE .STK-MED ONE Stop: 07/22/18 09:49 Last Admin: 07/22/18 12:08 Dose: 200 mls/hr Lidocaine HCl (Xylocaine 1%) 0 ml INJECT ONETIME ONE Stop: 07/22/18 12:34 Last Admin: 07/22/18 12:25 Dose: 50 ml Methylergonovine Maleate (Methergine) 0.2 mg IM STAT ONE Stop: 07/22/18 12:28 Last Admin: 07/22/18 12:33 Dose: 0.2 mg Oxytocin (Pitocin) Confirm Administered Dose 10 unit .ROUTE .STK-MED ONE Stop: 07/22/18 09:49 Last Admin: 07/22/18 13:46 Dose: Not Given - Infant Interaction Disposition, : [place] in Room with Family Interaction: Holding Feeding: Breastfed ; Nursed Well Support Person: - Recovery Exam Fundal Tone: Firm Fundal Level: At Umbilicus Fundal Placement: Left Lochia Amount: Small Lochia Color: Rubra/Red Episiotomy/Laceration: Approximated Bladder Status: Voiding Urinary Elimination: Voided - Exam General: Alert, Oriented HEENT: Pupils Equal Neck: Supple Lungs: Clear to Auscultation, Normal Respiratory Effort Cardiovascular: Regular Rate, Regular Rhythm GI/Abdominal Exam: Normal Bowel Sounds, Soft, Non-Tender, No Organomegaly, No Distention, No Abnormal Bruit, No Mass, Pelvis Stable Extremities: Normal Inspection, Normal Range of Motion, Non-Tender, No Pedal Edema, Normal Capillary Refill Skin: Warm, Dry, Intact Wound/Incisions: Other (small hematoma right labia, constance sized) Neurological: No New Focal Deficit Psy/Mental Status: Alert, Normal Affect, Normal Mood - Problem List & Annotations (1) Active labor at term SNOMED Code(s): 01674051 Code(s): QUA6418 - Status: Acute Current Visit: Yes (2) GBS (group B Streptococcus carrier), +RV culture, currently SNOMED Code(s): 9946207490888, 303221340, 3441744470138 Code(s): O99.820 - STREPTOCOCCUS 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 COMPLICATING Status: Acute Current Visit: Yes (3) Spontaneous rupture of membranes SNOMED Code(s): 220842480 Code(s): NSN9295 - Status: Acute Current Visit: Yes (4) Vaginal delivery SNOMED Code(s): 870840731 Code(s): O80 - ENCOUNTER FOR FULL-TERM UNCOMPLICATED DELIVERY Status: Acute Current Visit: Yes (5) Periurethral laceration, delivered, current hospitalization SNOMED Code(s): 460498706, 564161279 Code(s): O71.82 - OTHER SPECIFIED TRAUMA TO PERINEUM AND VULVA Status: Acute Current Visit: Yes (6) Obstetric labial laceration, delivered, current hospitalization SNOMED Code(s): 756268432, 590556156, 277252971 Code(s): O70.0 - FIRST DEGREE PERINEAL LACERATION DURING DELIVERY Status: Acute Current Visit: Yes (7) Mother currently breast-feeding SNOMED Code(s): 102237960 Code(s): XQO3480 - Status: Acute Current Visit: Yes - Problem List Review Problem List Initiated/Reviewed/Updated: Yes - My Orders Last 24 Hours: My Active Orders 07/22/18 08:34 Up ad Linda [RC] ASDIRECTED Acetaminophen [Tylenol] 650 mg PO Q4H PRN Calcium Carbonate [Tums] 1,000 mg PO Q2H PRN Ondansetron [Zofran] 4 mg IV Q4H PRN Sodium Chloride 0.9% [Saline Flush] 10 ml FLUSH ASDIRECTED PRN fentaNYL [Sublimaze] 100 mcg IVPUSH Q1H PRN Resuscitation Status Routine 07/22/18 08:35 Patient Status [ADT] Routine Communication Order [RC] ASDIRECTED Notify Provider [RC] .PRN Vital Signs [RC] Q4H Saline Lock Insert [OM.PC] Routine 07/22/18 08:38 Notify Provider Vital Signs [RC] .PRN 07/22/18 12:46 Patient Status [ADT] Routine Consult to Language Translator [CONS] Routine Acetaminophen [Tylenol Bulk Bottle] 325 - 650 mg PO Q4H PRN Benzocaine [Zrnh-W-Ycyqoaj 20% Lawrence] See Dose Instructions TOP Q4H PRN Docusate Sodium [Colace] 100 mg PO BID PRN Ibuprofen [Motrin Bulk Bottle] 600 mg PO Q6H PRN Lanolin [Lansinoh HPA] 0 gm TOP ASDIRECTED PRN Suzie Jason [Tucks] 1 pad TOP ASDIRECTED PRN Assess Lochia [WOMSER] Per Unit Routine Assess Uterine Involution [WOMSER] Per Unit Routine 07/22/18 12:47 Ice Therapy [OM.PC] Per Unit Routine Perineal Care [OM.PC] Per Unit Routine Sitz Bath [OM.PC] Per Unit Routine 07/22/18 12:48 Peripheral IV Discontinue [OM.PC] Routine 07/22/18 Lunch Regular Diet [DIET] 07/23/18 08:00 Ferrous Sulfate 325 mg PO WITHBREAKFAST 07/24/18 06:00 HEMOGLOBIN [HEME] Routine - Assessment Assessment:: 07/22/18 Right sided periurethral and labial tear repaired with 3-0 Vicryl Boggy uterus initially with 400 ml blood loss FF now with light bleeding GBS positive, received one dose of antibiotics Plan: Routine cares support Anticipate 48 hour stay for GBS 07/23/18 going okay PP day 2 Hgb down to 9.2, asymptomatic Nickel sized hematoma right labia, draining on its own, well approximated and sutures intact Bonding well with baby - Plan Plan:: I personally performed or re-performed the physical examination and medical decision making. I have verified all student documentation or findings, including history, physical exam and/or medical decision making.Gay Valdez APRN, CNM, REGINA 07/23/18 Repeat hemoglobin in am Monitor hematoma closely Start iron today support today Routine cares Anticipate discharge home tomorrow <Gay Valdez - Last Filed: 07/23/18 08:13> - Patient Data Vital Signs - Most Recent: Last Vital Signs Temp 96.5 F 07/23/18 07:26 Pulse 86 07/23/18 07:26 Resp 16 07/23/18 07:26 BP 107/51 L 07/23/18 07:26 Pulse Ox 100 07/23/18 07:26 Lab Results - Last 24 Hours: Laboratory Results - last 24 hr 07/22/18 07/22/18 07/23/18 Range/Units 06:52 08:34 05:00 WBC 19.2 H 14.2 H (4.5-11.0) K/uL RBC 4.18 3.27 L (3.30-5.50) M/uL Hgb 12.1 9.2 L D (12.0-15.0) g/dL Hct 35.5 L 28.6 L (36.0-48.0) % MCV 85 88 (80-98) fL MCH 29 28 (27-31) pg MCHC 34 32 (32-36) % Plt Count 309 247 (150-400) K/uL Neut % (Auto) 85 H 71 H (36-66) % Lymph % (Auto) 10 L 20 L (24-44) % Charlton % (Auto) 5 8 H (2-6) % Eos % (Auto) 0 L 1 L (2-4) % Baso % (Auto) 0 0 (0-1) % Urine RBC 75-100 H (0-5) Urine WBC 10-20 H (0-5) Ur Epithelial Cells Moderate Urine Mucus Moderate Urinalysis Comment Med Orders - Current: Current Medications Acetaminophen (Tylenol) 650 mg PO Q4H PRN PRN Reason: Pain (Mild 1-3) and fever Acetaminophen (Tylenol Bulk Bottle) 325 - 650 mg PO Q4H PRN PRN Reason: Pain Last Admin: 07/22/18 14:57 Dose: 650 mg Benzocaine (Lkfi-Y-Fbxxzab 20% Lawrence) 0 gm TOP Q4H PRN PRN Reason: Perineal Comfort Measure Last Admin: 07/22/18 14:53 Dose: 1 spray Calcium Carbonate/Glycine (Tums) 1,000 mg PO Q2H PRN PRN Reason: Indigestion Docusate Sodium (Colace) 100 mg PO BID PRN PRN Reason: Constipation Emollient Ointment (Lansinoh Hpa) 0 gm TOP ASDIRECTED PRN PRN Reason: Sore Nipples Last Admin: 07/22/18 14:54 Dose: 1 applic Fentanyl (Sublimaze) 100 mcg IVPUSH Q1H PRN PRN Reason: Pain (moderate 4-6) Last Admin: 07/22/18 12:19 Dose: 100 mcg Ferrous Sulfate (Ferrous Sulfate) 325 mg PO WITHBREAKFAST [facility] Lactated Ringer's (Ringers, Lactated) 1,000 mls @ 125 mls/hr IV ASDIRECTED [facility] Last Admin: 07/22/18 08:16 Dose: 125 mls/hr Ibuprofen (Motrin Bulk Bottle) 600 mg PO Q6H PRN PRN Reason: Pain Last Admin: 07/22/18 14:55 Dose: 600 mg Ondansetron HCl (Zofran) 4 mg IV Q4H PRN PRN Reason: Nausea/Vomiting Sodium Chloride (Saline Flush) 10 ml FLUSH ASDIRECTED PRN PRN Reason: Keep Vein Open Witch Casie (Tucks) 1 pad TOP ASDIRECTED PRN PRN Reason: Hemorrhoids Last Admin: 07/22/18 14:53 Dose: 1 pad Discontinued Medications Penicillin G Potassium 2.5 (millunits/ Sodium Chloride) 50 mls @ 100 mls/hr IV Q4H [facility] Last Admin: 07/22/18 21:55 Dose: Not Given Penicillin G Potassium 5 (millunits/ Sodium Chloride) 50 mls @ 100 mls/hr IV ONETIME ONE Stop: 07/22/18 08:29 Last Admin: 07/22/18 08:16 Dose: 100 mls/hr Oxytocin/Sodium Chloride (Pitocin In Ns 20 Units/1,000 Ml) Confirm Administered Dose 20 unit in 1,000 mls @ as directed .ROUTE .STK-MED ONE Stop: 07/22/18 09:49 Last Admin: 07/22/18 12:08 Dose: 200 mls/hr Lidocaine HCl (Xylocaine 1%) 0 ml INJECT ONETIME ONE Stop: 07/22/18 12:34 Last Admin: 07/22/18 12:25 Dose: 50 ml Methylergonovine Maleate (Methergine) 0.2 mg IM STAT ONE Stop: 07/22/18 12:28 Last Admin: 07/22/18 12:33 Dose: 0.2 mg Oxytocin (Pitocin) Confirm Administered Dose 10 unit .ROUTE .STK-MED ONE Stop: 07/22/18 09:49 Last Admin: 07/22/18 13:46 Dose: Not Given - My Orders Last 24 Hours: My Active Orders 07/22/18 08:00 Lactated Ringers [Ringers, Lactated] 1,000 ml IV ASDIRECTED - Plan Plan:: I personally performed or re-performed the physical examination and medical decision making. I have verified all student documentation or findings, including history, physical exam and/or medical decision making.Gay Valdez APRN, CELSO, CFNP
[2018-07-23] MEDS: Ferrous Sulfate 325 MG Tab PO SCH (10:43)
--- NOTE | 2018-07-24 08:16 | PCM.PNPP ---
<Anjelica Castellanos - Last Filed: 07/24/18 08:13> - General Info Date of Service: 07/24/18 (PP day 2, discharge) Functional Status: Reports: Pain Controlled - Review of Systems General: Reports: No Symptoms HEENT: Reports: No Symptoms Pulmonary: Reports: No Symptoms Cardiovascular: Reports: No Symptoms Gastrointestinal: Reports: No Symptoms Genitourinary: Reports: No Symptoms Musculoskeletal: Reports: No Symptoms Skin: Reports: No Symptoms Neurological: Reports: No Symptoms Psychiatric: Reports: No Symptoms - General Info Date of Service: 07/24/18 - Patient Data Vital Signs - Most Recent: Last Vital Signs Temp 35.9 C 07/24/18 07:00 Pulse 73 07/24/18 07:00 Resp 18 07/24/18 07:00 BP 108/73 07/24/18 07:00 Pulse Ox 99 07/24/18 07:00 Weight - Most Recent: 278 lb Lab Results - Last 24 Hours: Laboratory Results - last 24 hr 07/24/18 Range/Units 05:56 Hgb 9.1 L (12.0-15.0) g/dL Med Orders - Current: Current Medications Acetaminophen (Tylenol) 650 mg PO Q4H PRN PRN Reason: Pain (Mild 1-3) and fever Acetaminophen (Tylenol Bulk Bottle) 325 - 650 mg PO Q4H PRN PRN Reason: Pain Last Admin: 07/22/18 14:57 Dose: 650 mg Benzocaine (Nlgp-D-Lqdcqht 20% [place]) 0 gm TOP Q4H PRN PRN Reason: Perineal Comfort Measure Last Admin: 07/22/18 14:53 Dose: 1 spray Calcium Carbonate/Glycine (Tums) 1,000 mg PO Q2H PRN PRN Reason: Indigestion Docusate Sodium (Colace) 100 mg PO BID PRN PRN Reason: Constipation Emollient Ointment (Lansinoh Hpa) 0 gm TOP ASDIRECTED PRN PRN Reason: Sore Nipples Last Admin: 07/22/18 14:54 Dose: 1 applic Fentanyl (Sublimaze) 100 mcg IVPUSH Q1H PRN PRN Reason: Pain (moderate 4-6) Last Admin: 07/22/18 12:19 Dose: 100 mcg Ferrous Sulfate (Ferrous Sulfate) 325 mg PO WITHBREAKFAST [facility] Last Admin: 07/23/18 10:43 Dose: 325 mg Lactated Ringer's (Ringers, Lactated) 1,000 mls @ 125 mls/hr IV ASDIRECTED [facility] Last Admin: 07/22/18 08:16 Dose: 125 mls/hr Ibuprofen (Motrin Bulk Bottle) 600 mg PO Q6H PRN PRN Reason: Pain Last Admin: 07/22/18 14:55 Dose: 600 mg Ondansetron HCl (Zofran) 4 mg IV Q4H PRN PRN Reason: Nausea/Vomiting Sodium Chloride (Saline Flush) 10 ml FLUSH ASDIRECTED PRN PRN Reason: Keep Vein Open Witch Casie (Tucks) 1 pad TOP ASDIRECTED PRN PRN Reason: Hemorrhoids Last Admin: 07/22/18 14:53 Dose: 1 pad Discontinued Medications Penicillin G Potassium 2.5 (millunits/ Sodium Chloride) 50 mls @ 100 mls/hr IV Q4H [facility] Last Admin: 07/22/18 21:55 Dose: Not Given Penicillin G Potassium 5 (millunits/ Sodium Chloride) 50 mls @ 100 mls/hr IV ONETIME ONE Stop: 07/22/18 08:29 Last Admin: 07/22/18 08:16 Dose: 100 mls/hr Oxytocin/Sodium Chloride (Pitocin In Ns 20 Units/1,000 Ml) Confirm Administered Dose 20 unit in 1,000 mls @ as directed .ROUTE .STK-MED ONE Stop: 07/22/18 09:49 Last Admin: 07/22/18 12:08 Dose: 200 mls/hr Oxytocin/Sodium Chloride (Pitocin In Ns 20 Units/1,000 Ml) 20 unit in 1,000 mls @ 2,997 mls/hr IV TITRATE [facility]; Protocol Stop: 07/22/18 12:21 Lidocaine HCl (Xylocaine 1%) 0 ml INJECT ONETIME ONE Stop: 07/22/18 12:34 Last Admin: 07/22/18 12:25 Dose: 50 ml Methylergonovine Maleate (Methergine) 0.2 mg IM STAT ONE Stop: 07/22/18 12:28 Last Admin: 07/22/18 12:33 Dose: 0.2 mg Oxytocin (Pitocin) Confirm Administered Dose 10 unit .ROUTE .STK-MED ONE Stop: 07/22/18 09:49 Last Admin: 07/22/18 13:46 Dose: Not Given - Interaction Infant Disposition, : in Room with Family Interaction: Holding Infant Feeding: Breastfed ; Nursed Well Support Person: - Recovery Exam Fundal Tone: Firm Fundal Level: At Umbilicus Fundal Placement: Left Lochia Amount: Small Lochia Color: Rubra/Red Episiotomy/Laceration: Approximated Bladder Status: Voiding Urinary Elimination: Voided - Exam General: Alert, Oriented HEENT: Pupils Equal Neck: Supple Lungs: Clear to Auscultation, Normal Respiratory Effort Cardiovascular: Regular Rate, Regular Rhythm GI/Abdominal Exam: Normal Bowel Sounds, Soft, Non-Tender, No Organomegaly, No Distention, No Abnormal Bruit, No Mass, Pelvis Stable Extremities: Normal Inspection, Normal Range of Motion, Non-Tender, No Pedal Edema, Normal Capillary Refill Skin: Warm, Dry, Intact Wound/Incisions: Healing Well Neurological: No New Focal Deficit Psy/Mental Status: Alert, Normal Affect, Normal Mood - Problem List & Annotations (1) Active labor at term SNOMED Code(s): 54507943 Code(s): XCD2184 - Status: Acute Current Visit: Yes (2) GBS (group B Streptococcus carrier), +RV culture, currently SNOMED Code(s): 4522083433283, 707942171, 6566183013676 Code(s): O99.820 - STREPTOCOCCUS 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 COMPLICATING Status: Acute Current Visit: Yes (3) Spontaneous rupture of membranes SNOMED Code(s): 686428740 Code(s): UKF7035 - Status: Acute Current Visit: Yes (4) Vaginal delivery SNOMED Code(s): 353850921 Code(s): O80 - ENCOUNTER FOR FULL-TERM UNCOMPLICATED DELIVERY Status: Acute Current Visit: Yes (5) Periurethral laceration, delivered, current hospitalization SNOMED Code(s): 999858171, 500788282 Code(s): O71.82 - OTHER SPECIFIED TRAUMA TO PERINEUM AND VULVA Status: Acute Current Visit: Yes (6) Obstetric labial laceration, delivered, current hospitalization SNOMED Code(s): 349980445, 445694663, 035039905 Code(s): O70.0 - FIRST DEGREE PERINEAL LACERATION DURING DELIVERY Status: Acute Current Visit: Yes (7) Mother currently breast-feeding SNOMED Code(s): 343693678 Code(s): VTG2627 - Status: Acute Current Visit: Yes - Problem List Review Problem List Initiated/Reviewed/Updated: Yes - My Orders Last 24 Hours: My Active Orders 07/23/18 08:00 Ferrous Sulfate 325 mg PO WITHBREAKFAST 07/24/18 08:13 Ready for Discharge [RC] PER UNIT ROUTINE - Assessment Assessment:: 07/22/18 Right sided periurethral and labial tear repaired with 3-0 Vicryl Boggy uterus initially with 400 ml blood loss FF now with light bleeding GBS positive, received one dose of antibiotics Plan: Routine cares support Anticipate 48 hour stay for GBS 07/23/18 going okay PP day 1 Hgb down to 9.2, asymptomatic Nickel sized hematoma right labia, draining on its own, well approximated and sutures intact Bonding well with baby 07/24/18 Uneventful period Labial hematoma is smaller today and she has no pain with this Hgb 9.1, stable well established FF with light bleeding, no clots - Plan Plan:: I personally performed or re-performed the physical examination and medical decision making. I have verified all student documentation or findings, including history, physical exam and/or medical decision making.Gay Valdez APRN, CNM, REGINA 07/24/18 Discharge home today 6 week check <Gay Valdez - Last Filed: 07/24/18 08:18> - Patient Data Vital Signs - Most Recent: Last Vital Signs Temp 96.6 F 07/24/18 07:00 Pulse 73 07/24/18 07:00 Resp 18 07/24/18 07:00 BP 108/73 07/24/18 07:00 Pulse Ox 99 07/24/18 07:00 Lab Results - Last 24 Hours: Laboratory Results - last 24 hr 07/24/18 Range/Units 05:56 Hgb 9.1 L (12.0-15.0) g/dL Med Orders - Current: Current Medications Acetaminophen (Tylenol) 650 mg PO Q4H PRN PRN Reason: Pain (Mild 1-3) and fever Acetaminophen (Tylenol Bulk Bottle) 325 - 650 mg PO Q4H PRN PRN Reason: Pain Last Admin: 07/22/18 14:57 Dose: 650 mg Benzocaine (Ogwi-C-Mwlebca 20% [place]) 0 gm TOP Q4H PRN PRN Reason: Perineal Comfort Measure Last Admin: 07/22/18 14:53 Dose: 1 spray Calcium Carbonate/Glycine (Tums) 1,000 mg PO Q2H PRN PRN Reason: Indigestion Docusate Sodium (Colace) 100 mg PO BID PRN PRN Reason: Constipation Emollient Ointment (Lansinoh Hpa) 0 gm TOP ASDIRECTED PRN PRN Reason: Sore Nipples Last Admin: 07/22/18 14:54 Dose: 1 applic Fentanyl (Sublimaze) 100 mcg IVPUSH Q1H PRN PRN Reason: Pain (moderate 4-6) Last Admin: 07/22/18 12:19 Dose: 100 mcg Ferrous Sulfate (Ferrous Sulfate) 325 mg PO WITHBREAKFAST [facility] Last Admin: 07/23/18 10:43 Dose: 325 mg Lactated Ringer's (Ringers, Lactated) 1,000 mls @ 125 mls/hr IV ASDIRECTED [facility] Last Admin: 07/22/18 08:16 Dose: 125 mls/hr Ibuprofen (Motrin Bulk Bottle) 600 mg PO Q6H PRN PRN Reason: Pain Last Admin: 07/22/18 14:55 Dose: 600 mg Ondansetron HCl (Zofran) 4 mg IV Q4H PRN PRN Reason: Nausea/Vomiting Sodium Chloride (Saline Flush) 10 ml FLUSH ASDIRECTED PRN PRN Reason: Keep Vein Open Witch Casie (Tucks) 1 pad TOP ASDIRECTED PRN PRN Reason: Hemorrhoids Last Admin: 07/22/18 14:53 Dose: 1 pad Discontinued Medications Penicillin G Potassium 2.5 (millunits/ Sodium Chloride) 50 mls @ 100 mls/hr IV Q4H [facility] Last Admin: 07/22/18 21:55 Dose: Not Given Penicillin G Potassium 5 (millunits/ Sodium Chloride) 50 mls @ 100 mls/hr IV ONETIME ONE Stop: 07/22/18 08:29 Last Admin: 07/22/18 08:16 Dose: 100 mls/hr Oxytocin/Sodium Chloride (Pitocin In Ns 20 Units/1,000 Ml) Confirm Administered Dose 20 unit in 1,000 mls @ as directed .ROUTE .STK-MED ONE Stop: 07/22/18 09:49 Last Admin: 07/22/18 12:08 Dose: 200 mls/hr Oxytocin/Sodium Chloride (Pitocin In Ns 20 Units/1,000 Ml) 20 unit in 1,000 mls @ 2,997 mls/hr IV TITRATE [facility]; Protocol Stop: 07/22/18 12:21 Lidocaine HCl (Xylocaine 1%) 0 ml INJECT ONETIME ONE Stop: 07/22/18 12:34 Last Admin: 07/22/18 12:25 Dose: 50 ml Methylergonovine Maleate (Methergine) 0.2 mg IM STAT ONE Stop: 07/22/18 12:28 Last Admin: 07/22/18 12:33 Dose: 0.2 mg Oxytocin (Pitocin) Confirm Administered Dose 10 unit .ROUTE .STK-MED ONE Stop: 07/22/18 09:49 Last Admin: 07/22/18 13:46 Dose: Not Given - Plan Plan:: I personally performed or re-performed the physical examination and medical decision making. I have verified all student documentation or findings, including history, physical exam and/or medical decision making.Gay Valdez APRN, CNMassiel, CFNP
[2018-07-24] MEDS: Ferrous Sulfate 325 MG Tab PO SCH (09:18)
== END 2018-07-24 10:15 | disposition home or self-care (01) | DRG 560 ==
LOC: JP.OBCHECK 06:45 → JP.OB 08:20 → UNDOADMOB 08:20 → INTOOBSV 12:05 → OBSVTOIN 12:05 → JP.OB 12:08 → OBSVTOIN 12:08 → JP.MS 15:10 → JP.OB 15:10
PROVIDERS: ADMIT Nurse Practitioner Family; ATTEND Nurse Practitioner Family
PROC: 10E0XZZ Delivery of Products of Conception, External Approach (ICD-10-PCS; principal; 2018-07-22)
PROC: 0UQMXZZ Repair Vulva, External Approach (ICD-10-PCS; 2018-07-22)
PROC: 0HQ9XZZ Repair Perineum Skin, External Approach (ICD-10-PCS; 2018-07-22)
DX: O99.824 Streptococcus B carrier state complicating childbirth (principal); O71.82 Other specified trauma to perineum and vulva; Z3A.40 40 weeks gestation of pregnancy; Z37.0 Single live birth; O70.0 First degree perineal laceration during delivery
CPT/HCPCS: 36415; 59409; 80305-QW; 81001; 84112; 85018; 85025; 99211; A9270-GY; J2001; J2210; J2540; J2590; J3010; J7050; J7120

== ENCOUNTER 2021-07-19 07:12 | Inpatient (IN) | payer BC ==
[2021-07-19] MEDS ORDERED: Misoprostol 50 MCG (1/2 of 100 MCG) Tab VAG ONE ×2 (07:30→11:30)
[2021-07-19] MEDS ORDERED: Sodium Chloride 0.9% 10 ML Syringe FLUSH PRN (08:23)
[2021-07-19 08:25] LABS: CORONAVIRUS COVID-19 NAA NEGATIVE (NEGATIVE)
[2021-07-19] MEDS ORDERED: Penicillin G Potassium 5 MILLUNITS in Sodium Chloride 0.9% 100 ML IV ONE ×4 (08:45)
[2021-07-19] MEDS: Penicillin G Potassium 2.5 MILLUNITS in Sodium Chloride 0.9% 50 ML IV SCH ×3 (12:13→21:35)
[2021-07-19] MEDS ORDERED: Lanolin 100% Cream 40 GM Tube TOP PRN (15:58)
[2021-07-19] MEDS ORDERED: Hydrocortisone 2.5% Crm 30 GM Tube TOP PRN (15:58)
[2021-07-19] MEDS ORDERED: Acetaminophen 325 MG Tab, 50 Tab Bulk Bottle PO PRN (15:58)
[2021-07-19] MEDS ORDERED: Witch Hazel Medicated Pads 100/Jar TOP PRN (15:58)
[2021-07-19] MEDS ORDERED: Ibuprofen 200 MG Tab, 24 Tab Bulk Bottle PO PRN (15:58)
[2021-07-19] MEDS ORDERED: Benzocaine 20% Top Spray 56 GM Bottle TOP PRN (15:58)
== END 2021-07-20 14:41 | disposition home or self-care (01) | DRG 560 ==
LOC: JP.OBCHECK 07:12 → JP.OB 07:14 → JP.OBCHECK 08:20 → JP.OB 08:23 → OBSVTOIN 15:36 → JP.MS 21:37
PROVIDERS: ADMIT Nurse Practitioner Family; ATTEND Nurse Practitioner Family
PROC: 10E0XZZ Delivery of Products of Conception, External Approach (ICD-10-PCS; principal; 2021-07-19)
PROC: 3E0P7VZ Introduction of Hormone into Female Reproductive, Via Natural or Artificial Opening (ICD-10-PCS; 2021-07-19)
PROC: 10907ZC Drainage of Amniotic Fluid, Therapeutic from Products of Conception, Via Natural or Artificial Opening (ICD-10-PCS; 2021-07-19)
PROC: 0HQ9XZZ Repair Perineum Skin, External Approach (ICD-10-PCS; 2021-07-19)
PROC: 4A1HXCZ Monitoring of Products of Conception, Cardiac Rate, External Approach (ICD-10-PCS; 2021-07-19)
DX: O48.0 Post-term pregnancy (principal); O99.824 Streptococcus B carrier state complicating childbirth; O69.81X0 Labor and delivery complicated by cord around neck, without compression, not applicable or unspecified; O70.0 First degree perineal laceration during delivery; Z20.822 Contact with and (suspected) exposure to COVID-19; Z3A.40 40 weeks gestation of pregnancy; Z37.0 Single live birth; O66.0 Obstructed labor due to shoulder dystocia
CPT/HCPCS: 0241U; 36415; 80305-QW; 81001; 85025; A9270-GY; J2540; J2590; J3490

== ENCOUNTER 2023-10-19 22:49 | Emergency (ER) | payer BC | END 2023-10-20 01:47 | disposition home or self-care (01) | LOC: JP.ED 22:49 | DX: L02.211 Cutaneous abscess of abdominal wall (principal); L03.311 Cellulitis of abdominal wall; Z91.041 Radiographic dye allergy status; Z88.8 Allergy status to other drugs, medicaments and biological substances; Z91.048 Other nonmedicinal substance allergy status | CPT/HCPCS: 23650; 96374; 96375; 99283-25 ==